=== PATIENT | male | born 1950 | race Caucasian/White ===

== ENCOUNTER 2020-12-21 07:33 | Outpatient (REF) | payer MEDICARE, SELFPAY ==
--- NOTE | 2020-12-21 08:00 | EMG_ITS ---
Left median and ulnar motor and sensory studies were performed. Left radial sensory study was performed and paraspinal muscles were tested with a needle. IMPRESSION: 1. Aoezjqdw-us-xvmxbg left ulnar neuropathy across cubital tunnel. 2. Qkhr-zq-nlevaarj left median neuropathy across carpal tunnel. MD NASRIN Aguayo/NEMESIO / [id number]
== END 2020-12-21 07:34 | disposition home or self-care (01) ==
LOC: HO.NEURO 07:33
PROVIDERS: PCP Internal Medicine; Referring Provider Chiropractor Neurology; Visit Provider Internal Medicine
DX: G56.22 Lesion of ulnar nerve, left upper limb (principal)
CPT/HCPCS: 95886; 95909